=== PATIENT | female | born 1935 | race Caucasian/White ===

== ENCOUNTER → 2017-11-29 | Outpatient (CLI) | payer MEDICARE | END | disposition home or self-care (01) | LOC: CFH 14:37 | PROVIDERS: ATTEND Internal Medicine Cardiovascular Disease | DX: I34.0 Nonrheumatic mitral (valve) insufficiency (principal); I34.8 Other nonrheumatic mitral valve disorders; I10 Essential (primary) hypertension | CPT/HCPCS: 93306 ==